=== PATIENT | female | born 1945 | race Caucasian/White ===

== ENCOUNTER → 2019-05-09 | Outpatient (CLI) | payer OTHER ==
[~2019-05-09] MED LIST: ATOR20TA65 PO; BUPR75TA8 PO; CALC-1153 PO; GINK120C PO; LOSA100T58 PO; LYSI500T3 PO; MELA5CAP PO; MULT-1192 PO; NAPR250T4 PO; OMEP40CA37 PO; SERT100T12 PO; [UNRECOGNIZED DRUG - CODE] PO
== END | disposition home or self-care (01) ==
LOC: RAH 09:09
PROVIDERS: ATTEND Family Medicine
DX: Z12.31 Encounter for screening mammogram for malignant neoplasm of breast (principal)
CPT/HCPCS: 77067

== ENCOUNTER 2020-02-17 15:28 | Observation (INO) | payer OTHER ==
[~2020-02-17] VITALS: Ht 162.6 cm; Wt 69.6 kg
[~2020-02-17 15:28] MED LIST changes: +OMEP40CA13 PO; -OMEP40CA37 PO
[2020-02-17 15:45] LABS: BASOPHILS % (AUTO) 0.6 % (0.0-5.0); EOSINOPHILS % (AUTO) 0.4 % (0.0-8.0); HEMATOCRIT 42.3 % (36-48); LYMPHOCYTES % (AUTO) 21.5 % (21.0-51.0); MEAN CORPUSCULAR HEMOGLOBIN 29.1 pg (27.0-33.0); MEAN CORPUSCULAR HGB CONC 33.3 g/dL (32.0-36.0); MEAN CORPUSCULAR VOLUME 87.2 fL (79-99); MONOCYTES % (AUTO) 7.6 % (3.0-13.0); NEUTROPHILS % (AUTO) 69.6 % (40.0-77.0); PLATELET COUNT (AUTO) 361 K/uL (130-400); RED BLOOD CELL COUNT(AUTO) 4.85 MIL/uL (4.00-5.50); RED CELL DISTRIBUTION WIDTH 12.2 % (11.0-15.5)
[2020-02-17 16:01] LABS: POTASSIUM 3.9 mmol/L (3.5-5.1)
[2020-02-17 16:06] LABS: ALBUMIN 4.3 g/dL (3.5-5.0); BILIRUBIN,TOTAL 0.6 mg/dL (0.2-1.0); TOTAL PROTEIN, SERUM 8.1 g/dL (6.0-8.3)
[2020-02-17] MEDS ORDERED: ONDANSETRON HCL 4 MG/2 ML VIAL ONE (16:31)
[2020-02-17 16:49] LABS: APPEARANCE,URINE Clear (CLEAR); BILIRUBIN,URINE Negative (NEGATIVE); COLOR,URINE Dark Yellow (YELLOW); GLUCOSE, URINE (UA) Negative (NEGATIVE); KETONES,URINE 15 mg/dL (NEGATIVE); LEUKOCYTE ESTERASE ,URINE Moderate (NEGATIVE); NITRATE,URINE Negative (NEGATIVE); OCCULT BLOOD,URINE Negative (NEGATIVE); PH,URINE 5.5 (5.0-8.0); PROTEIN,URINE Negative (NEGATIVE)
[2020-02-17 17:03] LABS: BACTERIA,URINE Few /HPF (None Seen); MUCUS,URINE Few LPF (None Seen); RBC,URINE 0-1 /HPF (0-1); SQUAMOUS EPITHELIAL CELL,UR 0-2 /HPF (0-2)
[2020-02-17] MEDS ORDERED: METOCLOPRAMIDE 10 MG/2 ML VIAL ONE (17:18)
[2020-02-17] MEDS ORDERED: CEFTRIAXONE SODIUM 1 GM ONE (18:42)
[2020-02-17] MEDS ORDERED: DEXTROSE 50%-WATER 50 ML DISP.SYRIN IV PRN (19:00)
[2020-02-17] MEDS ORDERED: ONDANSETRON HCL 4 MG/2 ML VIAL IVP PRN (19:00)
[2020-02-17] MEDS ORDERED: PROMETHAZINE HCL 25 MG/ML 1ML AMPULE IM PRN (19:00)
[2020-02-17] MEDS ORDERED: ACETAMINOPHEN 325 MG TAB PO PRN ×2 (19:00)
[2020-02-17] MEDS ORDERED: GLUCAGON 1MG KIT 1 MG ML IM PRN (19:00)
[2020-02-17 19:52] VITALS: BP 125/77
[2020-02-17] MEDS ORDERED: CARB200T6 PO (20:36)
[2020-02-17] MEDS ORDERED: GABA-529 PO (20:36)
[2020-02-17] MEDS: SODIUM CHLORIDE 0.9% 1000ML 1,000 ML IV SCH (20:39)
[2020-02-17] MEDS: INSULIN R PO SSI SQ SCH (20:40)
[2020-02-17 23:10] VITALS: BP 131/72
--- NOTE | 2020-02-18 00:06 | NUR ---
ROUNDS PATIENT RESTING IN BED WITH OU CLOSED. EASILY AROUSED. NO COMPLAINTS OF PAIN VOICED AT THIS TIME. VITALS STABLE. AFEBRILE. TOLERATING IVF WELL. NS INFUSING AT 75ML/HR. NO NAUSEA OR VOMITING NOTED AT THIS TIME. RESP EVEN AND UNLABORED. NO SOB NOTED. ON ROOM AIR. TOTAL CARE RENDERED Q2H AND PRN. CALL LIGHT WITHIN REACH. WILL CONTINUE TO BE OBSERVED. Addendum: 02/18/20 at 0014 by ELAINA WILLIAM RN RN Amended: Links added.
[2020-02-18 03:07] VITALS: BP 135/75
[2020-02-18] MEDS: INSULIN R PO SSI SQ SCH ×4 (07:30→20:44)
[2020-02-18 08:00] VITALS: BP 144/75
[2020-02-18] MEDS: FAMOTIDINE/PF 20 MG/2 ML VIAL IV SCH (08:58)
[2020-02-18] MEDS: SODIUM CHLORIDE 0.9% 1000ML 1,000 ML IV SCH ×2 (08:58→20:44)
[2020-02-18 11:57] VITALS: BP 140/92
--- NOTE | 2020-02-18 12:04 | NUR ---
CM NOTE- DCP HOME Met with patient at bedside; she states she is independent, very active, drives, 'gets up & down on ladders'. Daughter and son in law live with her and will provide transport at discharge. Face sheet updated. dcp is home. Pt states was given carbenzapine as a new RX by dr. Lewis just a week ago and has been nauseated ever since. has dx of trigeminal neuralgia, has MRI's x 2 scheduled march 03 and here at [facility] [place], can Cm find out why are two different days? CM states would look into it and report back. cm to follow , dcp home Addendum: 02/18/20 at 1209 by JEREMIE URIARTE RN Amended: Links added.
[2020-02-18] MEDS ORDERED: LIDOCAINE HCL-MPF 1% 2ML VIAL IV PRN (14:30)
[2020-02-18] MEDS ORDERED: ACETAMINOPHEN-CODEINE 300/30MG TAB PO PRN (14:30)
[2020-02-18] MEDS ORDERED: LACTULOSE 20 GM/30 ML UDCUP PO PRN (14:30)
[2020-02-18] MEDS ORDERED: HYDRALAZINE HCL 20 MG/ML VIAL IV PRN (14:30)
[2020-02-18] MEDS ORDERED: POTASSIUM CHLORIDE 20MEQ/100ML 100 ML IV PRN (14:30)
[2020-02-18] MEDS ORDERED: ONDANSETRON HCL 4 MG/2 ML VIAL IVP PRN (14:30)
[2020-02-18] MEDS ORDERED: MAGNESIUM 2GM PREMIX 50ML 50 ML IV PRN (14:30)
[2020-02-18] MEDS ORDERED: ZOLPIDEM TARTRATE 5 MG TAB PO PRN (14:30)
[2020-02-18] MEDS ORDERED: ACETAMINOPHEN 325 MG TAB PO PRN (14:30)
[2020-02-18] MEDS ORDERED: DIATR MEGLU/DIATRIZOATE SODIUM 30 ML BOTTLE ONE (14:46)
--- NOTE | 2020-02-18 15:44 | NUR ---
RD NOTIFICATION Pt admitted for intractable nausea and vomiting x 1 week. No significant weight loss. Pt BMI 26.3. Pt with Clear Liquid diet upon screen. Pt reports tolerating food 75%. No report of Nausea/vomiting at time of visit. Recommend advanced diet as tolerated to Regular diet order. RD to continue to monitor. Please notify as additional nutrition concerns arise. Thank you. Addendum: 02/18/20 at [address] RD Amended: Links added.
[2020-02-18 16:00] VITALS: BP 140/79
[2020-02-18 20:00] VITALS: BP 133/66
[2020-02-18] MEDS: LYSINE 500 MG PO SCH (20:52)
[2020-02-18] MEDS ORDERED: ATORVASTATIN CALCIUM 20 MG TABLET PO SCH (21:00)
[2020-02-18] MEDS ORDERED: MULTIVITAMIN TABLET PO SCH (21:00)
[2020-02-18] MEDS ORDERED: CALCIUM 600 + VITAMIN D 400 TABLET PO SCH (21:00)
[2020-02-18] MEDS ORDERED: LOSARTAN 100 MG TABLET PO SCH (21:00)
[2020-02-18] MEDS ORDERED: SERTRALINE HCL 50 MG TABLET PO SCH (21:00)
[2020-02-18] MEDS ORDERED: DIPHENHYDRAMINE HCL 25 MG CAPSULE PO SCH (21:00)
[2020-02-19] VITALS: BP 151/80
[2020-02-19 04:00] VITALS: BP 151/78
[2020-02-19] MEDS: INSULIN R PO SSI SQ SCH ×2 (05:38→11:30)
[2020-02-19 06:15] LABS: BASOPHILS % (AUTO) 0.5 % (0.0-5.0); EOSINOPHILS % (AUTO) 2.3 % (0.0-8.0); HEMATOCRIT 33.4 % (36-48); LYMPHOCYTES % (AUTO) 23.2 % (21.0-51.0); MEAN CORPUSCULAR HGB CONC 33.2 g/dL (32.0-36.0); MEAN CORPUSCULAR VOLUME 90.3 fL (79-99); NEUTROPHILS % (AUTO) 64.7 % (40.0-77.0); PLATELET COUNT (AUTO) 265 K/uL (130-400); RED CELL DISTRIBUTION WIDTH 12.2 % (11.0-15.5); WHITE BLOOD COUNT (AUTO) 7.4 K/uL (4.8-10.8)
[2020-02-19 06:38] LABS: ALBUMIN 3.1 g/dL (3.5-5.0); BILIRUBIN,TOTAL 0.3 mg/dL (0.2-1.0); CREATININE 0.9 mg/dL (0.5-1.5); MAGNESIUM 1.8 mg/dL (1.80-2.40); POTASSIUM 3.6 mmol/L (3.5-5.1); TOTAL PROTEIN, SERUM 5.9 g/dL (6.0-8.3)
[2020-02-19 07:57] VITALS: BP 143/65
[2020-02-19] MEDS: FAMOTIDINE/PF 20 MG/2 ML VIAL IV SCH (08:07)
[2020-02-19] MEDS: LYSINE 500 MG PO SCH (08:08)
[2020-02-19] MEDS ORDERED: PANTOPRAZOLE SODIUM 40 MG TABLET.DR PO SCH (09:00)
[2020-02-19] MEDS ORDERED: HEPARIN SODIUM 5000UNIT/ML 1ML VIAL SQ SCH (09:00)
--- NOTE | 2020-02-19 10:37 | NUR ---
CHART REVIEWED- NOTE MADE OF ORDER FOR REGULAR DIET- ANTICIPATING DISCHARGE TODAY H/H [facility] CHANGE NOTES AND RELAYED TO DENTAL OFFICE RECEPTIONIST. PT HAD ASKED ABOUT HER ORDERS FOR MRI AT [facility] OUT PATIENT ON March ORDERED BY HER PRIMARY MD. WAS TOLD HER NEUROLOGIST WAS GOING TO ORDER ANOTHER TEST AND THE NEURO OFFICE CALLED AND TOLD HER SHE HAD AN APPOINTMENT ON March WELL. CALL TO SCHEDULING, CONFIRMED ONLY ONE APPOINTMENT IN OUR SYSTEM-March, MRI OF BRAIN WITH AND WITHOUT Addendum: 02/19/20 at 1045 by JEREMIE URIARTE RN CM Amended: Links added.
[2020-02-19 11:38] VITALS: BP 154/87
[2020-02-19 16:45] VITALS: BP 148/73
== END 2020-02-19 18:50 | disposition home or self-care (01) ==
LOC: EDH 15:28 → EDHIP 18:18 → 3CH 19:31
PROVIDERS: ADMIT Internal Medicine Critical Care Medicine; ATTEND Internal Medicine Critical Care Medicine
DX: R11.2 Nausea with vomiting, unspecified (principal); T42.1X5A Adverse effect of iminostilbenes, initial encounter; G50.0 Trigeminal neuralgia; M50.30 Other cervical disc degeneration, unspecified cervical region; R32 Unspecified urinary incontinence; I10 Essential (primary) hypertension; F32.9 Major depressive disorder, single episode, unspecified; E78.5 Hyperlipidemia, unspecified; Z79.899 Other long term (current) drug therapy; Y92.9 Unspecified place or not applicable
CPT/HCPCS: 36415 ×3; 71045; 74176; 80053 ×2; 80156; 81001; 82550; 82948 ×4; 83605; 83690; 83735; 84484; 85025 ×2; 87088; 93005; 96372 ×2; 96374; 97161; 99285; G0378 ×7; G8978; G8979; G8980; G8981; G8982; G8983; J0696; J1644; J2405; J2550; J2765; J3490; J7030; Q0163; Q9963

== ENCOUNTER → 2020-03-03 | Outpatient (CLI) | payer OTHER ==
[~2020-03-03] MED LIST changes: -BUPR75TA8 PO; +GABA-529 PO; +GADODIAMIDE 10 MMOL/20 ML VIAL IV ONE; -GINK120C PO; -NAPR250T4 PO
== END | disposition home or self-care (01) ==
LOC: RAH 08:40
PROVIDERS: ATTEND Family Medicine
DX: I67.82 Cerebral ischemia (principal); M50.322 Other cervical disc degeneration at C5-C6 level; M50.221 Other cervical disc displacement at C4-C5 level; M50.222 Other cervical disc displacement at C5-C6 level; M12.88 Other specific arthropathies, not elsewhere classified, other specified site
CPT/HCPCS: 70553; 72141; A9579